=== PATIENT | male | born 1985 | race Caucasian/White ===

== ENCOUNTER 2018-06-25 09:45 | Emergency (ER) | payer OTHER ==
[~2018-06-25] VITALS: Ht 172.7 cm; Wt 99.8 kg
[2018-06-25 09:45] VITALS: BP 167/85
== END 2018-06-25 10:44 | disposition home or self-care (01) ==
LOC: ER 09:47
DX: F11.23 Opioid dependence with withdrawal (principal); I10 Essential (primary) hypertension; F17.200 Nicotine dependence, unspecified, uncomplicated
CPT/HCPCS: A4606; Z7610

== ENCOUNTER 2023-01-03 07:17 | Emergency (ER) | payer OTHER ==
[~2023-01-03] VITALS: Ht 175.3 cm; Wt 104.3 kg
--- NOTE | 2023-01-03 07:30 | NUR ---
paul and tay for clearance, tased pin removal 3rd digit. put on bed . DR CARDOSO AT BEDSIDE. CARRID OUT ORDERS
--- NOTE | 2023-01-03 07:40 | NUR ---
nikki petit snt to lab
--- NOTE | 2023-01-03 07:47 | NUR ---
EMD NUMB 3RD DIGIT FOR PIN REMOVAL
[2023-01-03 07:52] VITALS: BP 157/113
--- NOTE | 2023-01-03 07:59 | NUR ---
TASER PIN REMOVED BY EMD AND DRESSING DONE BY TECH
== END 2023-01-03 08:07 ==
LOC: ER 07:34
DX: S60.452A Superficial foreign body of right middle finger, initial encounter (principal); X58.XXXA Exposure to other specified factors, initial encounter; Y93.89 Activity, other specified; Y92.89 Other specified places as the place of occurrence of the external cause; Y99.8 Other external cause status